=== PATIENT | female | born 1995 | race Caucasian/White ===

== ENCOUNTER 2017-01-06 20:19 | Inpatient (IN) | payer OTHER ==
[~2017-01-06] VITALS: Ht 162.6 cm; Wt 76.0 kg
[~2017-01-06 20:19] MED LIST: CONCCAP2 PO; FERRTAB2 PO
[2017-01-06] MEDS ORDERED: LIDOCAINE HCL 1% 50 ML VIAL ONE (20:46)
[2017-01-06] MEDS ORDERED: OXYTOCIN 30 UNITS 500ML PREMIX IV ONE (21:00)
[2017-01-06] MEDS ORDERED: NS 500 ML BOLUS IV PRN (21:00)
[2017-01-06] MEDS: LACTATED RINGER'S 1000 ML IV SCH (21:00)
[2017-01-06] MEDS ORDERED: MINERAL OIL 10 ML VIAL TOPICAL PRN (21:00)
[2017-01-06] MEDS ORDERED: LIDOCAINE HCL 1% 50 ML VIAL I-DERMAL PRN (21:00)
[2017-01-06] MEDS ORDERED: CITRIC ACID-SODIUM CITRATE LIQ 30 ML UDC PO SCH (21:00)
[2017-01-06] MEDS ORDERED: NS 1000 ML IV PRN (21:00)
[2017-01-06] MEDS ORDERED: LIDOCAINE HCL 1% 50 ML VIAL INFIL PRN (21:00)
[2017-01-06] MEDS ORDERED: ZOLPIDEM TARTRATE 10 MG TAB PO PRN (21:00)
[2017-01-06] MEDS ORDERED: LACTATED RINGER'S 1000 ML BOLUS IV PRN (21:00)
[2017-01-06] MEDS ORDERED: ONDANSETRON HCL 4 MG/2 ML VIAL IV PUSH PRN (21:00)
[2017-01-06 23:09] LABS: AUTOMATED NEUTROPHIL # 9.3 TH/MM3 (1.8-7.7); BASOPHIL % 0.3 % (0.0-2.0); EOSINOPHIL # 0.1 TH/MM3 (0-0.4); EOSINOPHIL % 0.5 % (0.0-4.0); HEMATOCRIT 32.6 % (35.0-46.0); LYMPH % 18.5 % (9.0-44.0); LYMPHOCYTE # 2.4 TH/MM3 (1.0-4.8); MEAN CELL VOLUME 91.1 FL (80.0-100.0); MEAN CORPUSCULAR HEMOGLOBIN 30.6 PG (27.0-34.0); MEAN CORPUSCULAR HGB CONC 33.6 % (32.0-36.0); MONO % 8.6 % (0.0-8.0); NEUT % 72.1 % (16.0-70.0); PLATELET COUNT 292 TH/MM3 (150-450); RED BLOOD COUNT 3.58 MIL/MM3 (4.00-5.30); RED CELL DISTRIBUTION WIDTH 14.5 % (11.6-17.2); WHITE BLOOD COUNT 12.9 TH/MM3 (4.0-11.0)
[2017-01-06 23:15] LABS: HEMO FLAGS AUTO DIFF
[2017-01-06] MEDS ORDERED: NS 1000 ML OTHER PRN (23:15)
[2017-01-06] MEDS ORDERED: MISOPROSTOL 25 MCG SUPP VAGINAL ONE (23:15)
[2017-01-06] MEDS: LACTATED RINGER'S 1000 ML INJ 1,000 ML IV SCH (23:15)
[2017-01-06] MEDS ORDERED: MISOPROSTOL 25 MCG SUPP - repeat dose VAGINAL PRN (23:15)
[2017-01-06 23:19] LABS: BLOOD, URINE NEG (NEG); GLUCOSE,URINE NEG (NEG); KETONE, URINE NEG (NEG); NITRITE,URINE NEG (NEG); PH, URINE 6.5 (5.0-8.5); SQUAMOUS EPITHELIAL CELL URINE 1 /hpf (0-5); URINE COLOR YELLOW (YELLW/STRAW)
[2017-01-06 23:22] VITALS: RESP 18
[2017-01-06 23:24] VITALS: BP 124/66; PULSE 72; TEMP 98.1
[2017-01-06 23:24] LABS: COMMENT (UR) CULT NOT INDICATED; CULTURE IF INDICATED CULT NOT INDICATED
[2017-01-07] VITALS (58 sets, daily range): BP systolic 114–137; BP diastolic 55–98; PULSE 79–132; RESP 8–18; TEMP 98–102.1
[2017-01-07 00:48] LABS: BANDS 19 % (0-6); MYELOCYTES 2 % (0-0); NEUTROPHIL # MANUAL DIFF 10.7 TH/MM3 (1.8-7.7); PLATELET ESTIMATE SMEAR NORMAL (NORMAL); POLYS (SEG NEUTROPHILS) 62 % (16-70); SCAN/DIFF FINAL DIFF MANUAL; WBC DIFF SAMPLE 100
[2017-01-07 00:49] LABS: PLATELET MORPHOLOGY ENLARGED (NORMAL); TOXIC GRANULATION 2+ (NORMAL)
[2017-01-07] MEDS ORDERED: MISOPROSTOL 25 MCG SUPP VAGINAL ONE (03:30)
--- NOTE | 2017-01-07 04:16 | HHI.HP ---
HPI Chief Complaint Induction of labor Travel History International Travel<30 Days: No Contact w/Intl Traveler<30Days: No Known Affected Area: No History of Present Illness HPI 21-year-old G2 0010, IUP at 40 and 6 days care complicated by LGSIL Pap, Rh-, anemia Patient presents for scheduled induction of labor. She denies any leaking of fluid or vaginal bleeding. She reports good movement. She denies any frequent or painful contractions. Weeks Gestation: 40 Para: 0 : 2 History Past Medical History Narrative Medical Anemia Obstetric History Obstetric History 010 SAB 1 Past Surgical History Surgical History: No Previous Surgery Family History Family History: Negative Social History Alcohol Use: No Tobacco Use: No Substance Abuse: No Allergies-Medications (Allergen,Severity, Reaction): Coded Allergies: No Known Allergies (Verified Adverse Reaction, Unknown, 01/05/17) Home Meds Active Scripts Multi-Vit/Iron-Folic Uhae-T31-Eir C (Ferralet) 90-1-0.012-120 mg Tab, 1 TAB PO DAILY, #30 BOTTLE 6 Refills Prov:Soledad Nunez 10/07/16 Vit W/ Fe Fum-Iron Po (Concept Dha 53.5-38-1 mg) 1 Cap Cap, 1 TAB PO DAILY for nutrition, #30 BOTTLE 11 Refills Prov:Crow Mcfadden MD 09/14/16 Review of Systems Except as stated in HPI: all other systems reviewed are Neg Physical Exam Vital Signs Date Time Temp Pulse Resp B/P (MAP) Pulse Ox O2 Delivery O2 Flow Rate FiO2 01/07/17 03:45 18 01/07/17 03:15 18 01/07/17 02:45 18 01/07/17 02:15 18 01/07/17 01:45 18 01/07/17 00:42 18 01/07/17 00:15 18 01/06/17 23:24 98.1 72 124/66 (85) 01/06/17 23:22 18 Narrative GENERAL: Well-nourished, well-developed patient. SKIN: Warm and dry. HEAD: Normocephalic and atraumatic. EYES: No scleral icterus. No injection or drainage. ENT: No nasal drainage noted. Mucous membranes pink. Airway patent. NECK: Supple, trachea midline. No JVD. CARDIOVASCULAR: Regular rate and rhythm without murmurs, gallops, or rubs. RESPIRATORY: Breath sounds equal bilaterally. No accessory muscle use. ABDOMEN/GI: Abdomen soft, non-tender, bowel sounds present, no rebound, no guarding Gravid GENITOURINARY: External Genitalia: intact and normal in appearance. Grossly normal rugae, physiologic discharge, no cervical or vaginal masses noted. SVE 1/70/-2 on admission. Repeat examination after one Cytotec now 370/-2 and appears to have ruptured membranes FHT's: heart tones in the 130s with moderate long-term variability, good accelerations, no decelerations EXTREMITIES: No cyanosis or edema. BACK: Nontender without obvious deformity. NEUROLOGICAL: Awake and alert. Motor and sensory grossly within normal limits. Five out of 5 muscle strength in all muscle groups. Normal speech. Psychiatric: Grossly normal memory and affect Caprini VTE Risk Assessment Caprini VTE Risk Assessment: No/Low Risk (score <= 1) Caprini Risk Assessment Model Point Value = 1 Point Value = 2 Point Value = 3 Point Value = 5 Age 41-60 Minor surgery BMI > 25 kg/m2 Swollen legs Varicose veins or History of unexplained or recurrent spontaneous Oral contraceptives or hormone replacement Sepsis (< 1 month) Serious lung disease, including pneumonia (< 1 month) Abnormal pulmonary function Acute myocardial infarction Congestive heart failure (< 1 month) History of inflammatory bowel disease Medical patient at bed rest Age 61-74 Arthroscopic surgery Major open surgery (> 45 min) Laparoscopic surgery (> 45 min) Malignancy Confined to bed (> 72 hours) Immobilizing plaster cast Central venous access Age >= 75 History of VTE Family history of VTE Factor V Leiden Prothrombin [id number] Lupus anticoagulant Anticardiolipin antibodies Elevated serum homocysteine Heparin-induced thrombocytopenia Other congenital or acquired thrombophilia Stroke (< 1 month) Elective arthroplasty Hip, pelvis, or leg fracture Acute spinal cord injury (< 1 month) Prophylaxis Regimen Total Risk Factor Score Risk Level Prophylaxis Regimen 0-1 Low Early ambulation 2 Moderate Order ONE of the following: *Sequential Compression Device (SCD) *Heparin 5000 units SQ BID 3-4 Higher Order ONE of the following medications: *Heparin 5000 units SQ TID *Enoxaparin/Lovenox 40 mg SQ daily (WT < 150 kg, CrCl > 30 mL/min) *Enoxaparin/Lovenox 30 mg SQ daily (WT < 150 kg, CrCl > 10-29 mL/min) *Enoxaparin/Lovenox 30 mg SQ BID (WT < 150 kg, CrCl > 30 mL/min) AND/OR *Sequential Compression Device (SCD) 5 or more Highest Order ONE of the following medications: *Heparin 5000 units SQ TID (Preferred with Epidurals) *Enoxaparin/Lovenox 40 mg SQ daily (WT < 150 kg, CrCl > 30 mL/min) *Enoxaparin/Lovenox 30 mg SQ daily (WT < 150 kg, CrCl > 10-29 mL/min) *Enoxaparin/Lovenox 30 mg SQ BID (WT < 150 kg, CrCl > 30 mL/min) AND *Sequential Compression Device (SCD) Data Data Orders Orders Lidocaine 1% Inj (50 Ml) (Xylocaine 1% I (01/06/17 20:46) Zolpidem (Ambien) (01/06/17 21:00) Lactated Ringer's 1000 Ml Inj (Lr 1000 M (01/06/17 21:00) Lactated Ringer's 1000 Ml Inj (Lr 1000 M (01/06/17 21:00) Sodium Chlorid 0.9% 500 Ml Inj (Ns 500 M (01/06/17 21:00) Sodium Chlor 0.9% 1000 Ml Inj (Ns 1000 M (01/06/17 21:00) Lidocaine 1% Inj (50 Ml) (Xylocaine 1% I (01/06/17 21:00) Citric Acid-Sodium Citrate Liq (Bicitra (01/06/17 21:00) Ondansetron Inj (Zofran Inj) (01/06/17 21:00) Fentanyl Inj (Fentanyl Inj) (01/06/17 21:00) Fentanyl Inj (Fentanyl Inj) (01/06/17 21:00) Oxytocin 30 Units-500ml Premix (Pitocin (01/06/17 21:00) Lidocaine 1% Inj (50 Ml) (Xylocaine 1% I (01/06/17 21:00) Light Mineral Oil (Muri-Lube Oil) (01/06/17 21:00) Admit To Inpatient (01/06/17 ) Vital Signs (Adult) .Per protocol (01/06/17 22:10) Heart (01/06/17 22:10) Amnioinfusion (01/06/17 22:10) Urinary Catheter Management .ONCE (01/06/17 22:10) Diet Liquid (01/07/17 Breakfast) Complete Blood Count With Diff (01/06/17 22:10) Hold Clot (01/06/17 22:10) Abo/Rh Blood Type (01/06/17 22:10) Urinalysis - C+S If Indicated (01/06/17 22:10) Drug Screen, Random Urine (01/06/17 22:10) Resp Oxygen Non Rebreathe Mask (01/06/17 ) ^ Epidural / Intrathecal Infus (01/06/17 22:10) Specimen To Be Collected PRN (01/06/17 22:10) Specimen To Be Collected PRN (01/06/17 22:10) Admit To Inpatient (01/06/17 ) ^ Labor Induction (01/06/17 23:03) ^ Vaginal Insert (01/06/17 23:03) ^ Vaginal Lavage (01/06/17 23:03) Heart (01/06/17 23:03) Misoprostol Supp (Cytotec Supp) (01/06/17 23:15) Misoprostol Supp (Cytotec Supp) (01/06/17 23:15) Lactated Ringer's 1000 Ml Inj (Lr 1000 M (01/06/17 23:15) Sodium Chlor 0.9% 1000 Ml Inj (Ns 1000 M (01/06/17 23:15) Misoprostol Supp (Cytotec Supp) (01/07/17 03:30) Labs Laboratory Tests Test 01/06/17 20:30 White Blood Count 12.9 Red Blood Count 3.58 Hemoglobin 10.9 Hematocrit 32.6 Mean Corpuscular Volume 91.1 Mean Corpuscular Hemoglobin 30.6 Mean Corpuscular Hemoglobin Concent 33.6 Red Cell Distribution Width 14.5 Platelet Count 292 Mean Platelet Volume 9.6 Neutrophils (%) (Auto) 72.1 Lymphocytes (%) (Auto) 18.5 Monocytes (%) (Auto) 8.6 Eosinophils (%) (Auto) 0.5 Basophils (%) (Auto) 0.3 Neutrophils # (Auto) 9.3 Lymphocytes # (Auto) 2.4 Monocytes # (Auto) 1.1 Eosinophils # (Auto) 0.1 Basophils # (Auto) 0.0 CBC Comment AUTO DIFF Differential Total Cells Counted 100 Neutrophils % (Manual) 62 Band Neutrophils % 19 Lymphocytes % 13 Monocytes % 4 Neutrophils # (Manual) 10.7 Myelocytes 2 Differential Comment FINAL DIFF MANUAL Toxic Granulation 2+ Platelet Estimate NORMAL Platelet Morphology Comment ENLARGED Urine Color YELLOW Urine Turbidity CLEAR Urine pH 6.5 Urine Specific [place] 1.017 Urine Protein NEG Urine Glucose (UA) NEG Urine Ketones NEG Urine Occult Blood NEG Urine Nitrite NEG Urine Bilirubin NEG Urine Urobilinogen LESS THAN 2.0 Urine Leukocyte Esterase NEG Urine RBC 1 Urine WBC 1 Urine Squamous Epithelial Cells 1 Microscopic Urinalysis Comment CULT NOT INDICATED Urine Opiates Screen NEG Urine Barbiturates Screen NEG Urine Amphetamines Screen NEG Urine Benzodiazepines Screen NEG Urine Cocaine Screen NEG Urine Cannabinoids Screen NEG Assessment/Plan Assessment and Plan Assessment/plan: 1. IUP at 40.6 2. Postdates induction of labor: Discussed with patient risks benefits and alternatives to induction of labor. Discussed risks of , risks and indications of delivery. The patient is completed her first dose of Cytotec and appears to spontaneously ruptured her membranes, so we'll start oxytocin 3. Reassuring testing with reassuring FHR, continue monitoring 4. Anemia 5. GBS negative 6. LGSIL Pap: Patient to follow up for further evaluation 7. Soledad Ugarte MD Jan 07, 2017 04:16
[2017-01-07] MEDS: LACTATED RINGER'S 1000 ML IV SCH ×2 (05:00→18:47)
[2017-01-07] MEDS ORDERED: OXYTOCIN 30 UNITS/NS 500ML PREMIX IV SCH (06:00)
[2017-01-07] MEDS ORDERED: fentaNYL 2MCG-BUPIV 0.125% INJ 100 ML ONE ×3 (08:01→20:46)
[2017-01-07] MEDS: LACTATED RINGER'S 1000 ML INJ 1,000 ML IV SCH (08:11)
[2017-01-07] MEDS ORDERED: ePHEDrine/NS 25 MG/5 ML SYR ONE (08:11)
[2017-01-07] MEDS ORDERED: DIPHTH/TETANUS/ACEL PERTUSSIS (BOOSTER) 0.5 ML VIAL/PFS IM ONE (16:00)
[2017-01-07] MEDS ORDERED: MEASLES, MUMPS, RUBELLA VACCINE 0.5 ML VIAL SQ ONE (16:00)
[2017-01-07 22:14] LABS: BLOOD GAS BASE EXCESS -5.2 mmol/L (-2-2); BLOOD GAS O2 HGB SATURATION 46 % (90-100); CORD BLOOD GAS HCO3 20 mmol/L (21-29); CORD BLOOD GAS PCO2 40 mmHG (34-78); CORD BLOOD GAS PH 7.31 (7.14-7.42); CORD BLOOD GAS PO2 24 mmHG (3.0-40.0); DRAW SITE CORD BLOOD; STAT YES
--- NOTE | 2017-01-07 22:27 | PD.OB.DELI ---
Weeks gestation: 40 Gest age assessed date: Jan 06, 2017 Gest age assessed time: 20:19 Pt started active labor?: Yes Active labor start date: Jan 06, 2017 Active labor start time: 20:18 Medical induction of labor?: No Artificial rupture of membrane: Yes Artificial ROM date: Jan 07, 2017 Artifical ROM time: 03:35 Anesthesia: Epidural Episiotomy: None Vaginal Delivery: Normal Presentation: Occiput anterior Nuchal Cord: None Delayed cord clamping (45 sec): No : Male Delivery date: Jan 07, 2017 Delivery time: 22:00 One Minute : 9 Five Minute : 9 Weight: 3620 Placenta: Spontaneous delivery Laceration: Vaginal laceration, 1 deg Repair: Chromic interrupted Estimated blood loss: 200 Additional Information moderate meconium fluid , baby felt "hot" at delivery Randall García II, MD Jan 07, 2017 22:27
[2017-01-07] MEDS ORDERED: ONDANSETRON ODT 4 MG TAB PO PRN (22:30)
[2017-01-07] MEDS ORDERED: ALUMINUM/MAGNESIUM/SIMETH 30 ML CUP PO PRN (22:30)
[2017-01-07] MEDS ORDERED: ACETAMINOPHEN 325 MG TAB PO PRN (22:30)
[2017-01-07] MEDS ORDERED: DOCUSATE SODIUM 50 MG/SENNA 8.6 MG TAB PO PRN (22:30)
[2017-01-07] MEDS ORDERED: BENZOCAINE 20% TOPICAL SPRAY 60 ML CAN TOPICAL PRN (22:30)
[2017-01-07] MEDS ORDERED: oxyCODONE/ACETAMINOPHEN 5 MG/325 MG TAB PO PRN (22:30)
[2017-01-07] MEDS ORDERED: OXYTOCIN 30 UNITS-500ML PREMIX 500 ML IV SCH (22:30)
[2017-01-07] MEDS ORDERED: ZOLPIDEM TARTRATE 5 MG TAB PO PRN (22:30)
[2017-01-07] MEDS ORDERED: WITCH HAZEL 50%/GLYCERIN 12.5% 40 PAD JAR TOPICAL PRN (22:30)
[2017-01-07] MEDS: AMPICILLIN INJ 2,000 MG in SODIUM CHLORIDE 0.9% INJ 100 ML IV SCH (23:00)
[2017-01-08 02:00] VITALS: BP 104/65; PULSE 91; RESP 16; TEMP 98.3
[2017-01-08] MEDS: IBUPROFEN 800 MG TAB PO PRN ×2 (05:19→17:34)
[2017-01-08] MEDS: AMPICILLIN INJ 2,000 MG in SODIUM CHLORIDE 0.9% INJ 100 ML IV SCH ×4 (05:21→22:59)
--- NOTE | 2017-01-08 07:54 | HHI.OB ---
Subjective Post Day: 1 Remarks day # 1 AFVSS overnight. Decreased lochia. Denies dysuria. No breast tenderness. She is feeding the baby via breast. Appetite good. No nausea or vomiting. Ambulating well. Denies calf pain or shortness of breath. Otherwise, she is doing well this morning and has no other complaints. Objective Vitals/I&O Vital Signs Date Time Temp Pulse Resp B/P (MAP) Pulse Ox O2 Delivery O2 Flow Rate FiO2 01/08/17 02:00 98.3 91 16 104/65 (78) 01/07/17 23:15 18 01/07/17 23:00 102.1 18 01/07/17 23:00 114 122/77 (92) 01/07/17 22:45 18 01/07/17 22:45 101 127/98 (108) 01/07/17 22:38 124 127/55 (79) 01/07/17 22:34 102.1 01/07/17 22:30 18 01/07/17 22:30 121/88 (99) 01/07/17 22:15 123 117/69 (85) 01/07/17 22:14 18 01/07/17 22:03 132 127/61 (83) 01/07/17 22:02 99.7 01/07/17 22:00 131/71 (91) 01/07/17 20:53 99.1 01/07/17 20:30 108 122/67 (85) 01/07/17 20:11 99.6 01/07/17 20:00 116 114/75 (88) 01/07/17 19:30 110 127/80 (96) 01/07/17 19:15 98.5 8 01/07/17 19:10 107 01/07/17 19:05 104 01/07/17 19:00 118 01/07/17 19:00 114 123/76 (92) 01/07/17 18:00 96 01/07/17 18:00 95 118/79 (92) 01/07/17 17:55 100 01/07/17 17:50 99 01/07/17 17:45 96 01/07/17 17:40 97 01/07/17 17:35 97 01/07/17 17:30 102 01/07/17 17:30 98 120/71 (87) 01/07/17 17:25 102 01/07/17 17:20 102 01/07/17 17:15 104 01/07/17 17:10 112 01/07/17 17:05 107 01/07/17 17:00 107 134/84 (101) 01/07/17 17:00 102 01/07/17 16:55 107 01/07/17 16:50 99 01/07/17 16:45 103 01/07/17 16:40 102 01/07/17 16:35 115 01/07/17 16:30 101 137/85 (102) 01/07/17 16:30 109 01/07/17 16:25 104 01/07/17 16:20 101 01/07/17 16:15 98.6 18 01/07/17 16:10 95 01/07/17 16:05 103 01/07/17 15:55 99 Intake & Output 01/08/17 01/08/17 07:00 19:00 Intake Total 460 ml Balance 460 ml Intake IV Total 460 ml Objective Remarks GENERAL: Well-nourished, well-developed patient. CARDIOVASCULAR: Regular rate and rhythm without murmurs, gallops, or rubs. RESPIRATORY: Breath sounds equal bilaterally. No accessory muscle use. ABDOMEN/GI: Abdomen soft, non-tender. Fundus: Firm, non-tender at umbilicus. GENITOURINARY: Light to moderate bleeding. EXTREMITIES: No cyanosis or edema, non-tender, without signs of DVT. Medications and IVs Current Medications Medications (Trade) Dose Ordered Sig/Rehan Route Start Time Stop Time Status Last Admin (NS Flush) 2 ml BID IV FLUSH 01/08/17 09:00 (NS Flush) 2 ml UNSCH PRN IV FLUSH 01/07/17 22:30 (Tylenol) 650 mg Q4H PRN PO 01/07/17 22:30 (Motrin) 800 mg Q8H PRN PO 01/07/17 22:30 01/08/17 05:19 (Percocet 5-325 Mg) 1 tab Q4H PRN PO 01/07/17 22:30 (Americaine 20% Top Spr) 1 spray Q4H PRN TOPICAL 01/07/17 22:30 (Tucks Pads) 1 applic QID PRN TOPICAL 01/07/17 22:30 (Sheri-Colace) 2 tab Q12H PRN PO 01/07/17 22:30 (Ambien) 5 mg HS PRN PO 01/07/17 22:30 (Mag-Al Plus Susp Liq) 15 ml Q8H PRN PO 01/07/17 22:30 (Zofran Odt) 4 mg Q6H PRN PO 01/07/17 22:30 Ampicillin Sodium 2000 mg/Sodium Chloride 100 ml @ 400 mls/hr Q6H IV 01/07/17 23:00 01/08/17 05:21 Assessment/Plan Assessment and Plan 21 y/o female who is day one s/p . -Continue routine care. -Percocet and Motrin PRN pain. -Encouraged OOB. Advised pelvic rest for 6 wks. -Re: ctrl, she would like to discuss with her outpatient OB for possibility of IUD. -D/c likely in 1 day. wdw Josue Yi MD R1 Jan 08, 2017 07:54
[2017-01-08 08:00] VITALS: BP 105/69; PULSE 75; RESP 18; TEMP 97.8
[2017-01-08] MEDS ORDERED: SODIUM CHLORIDE 0.9% FLUSH 10 ML FLUSH IV FLUSH SCH (09:00)
[2017-01-08 20:00] VITALS: BP 120/69; PULSE 83; RESP 18; TEMP 97.9; O2SAT 100
[2017-01-08] MEDS: SODIUM CHLORIDE 0.9% FLUSH 10 ML FLUSH IV FLUSH PRN (22:59)
[2017-01-09] MEDS: AMPICILLIN INJ 2,000 MG in SODIUM CHLORIDE 0.9% INJ 100 ML IV SCH (05:19)
[2017-01-09] MEDS: SODIUM CHLORIDE 0.9% FLUSH 10 ML FLUSH IV FLUSH PRN (05:19)
[2017-01-09 08:00] VITALS: BP 115/78; PULSE 78; RESP 16; TEMP 97.8
--- NOTE | 2017-01-09 10:43 | HHI.OB ---
Subjective Post Day: 2 Remarks Pt seen and examined this morning. day # 2 AFVSS overnight. Decreased lochia. Denies dysuria. No breast tenderness. She is feeding the baby via breast. Appetite good. No nausea or vomiting. Patient has not yet had a bowel movement, but does endorse bowel gas. Ambulating well. Denies calf pain or shortness of breath. Otherwise, she is doing well this morning and has no other concerns. Objective Vitals/I&O Vital Signs Date Time Temp Pulse Resp B/P (MAP) Pulse Ox O2 Delivery O2 Flow Rate FiO2 01/09/17 08:00 97.8 01/09/17 08:00 78 16 115/78 (90) 01/08/17 20:00 83 120/69 (86) 01/08/17 20:00 97.9 18 100 Objective Remarks GENERAL: Well-nourished, well-developed patient. CARDIOVASCULAR: Regular rate and rhythm without murmurs, gallops, or rubs. RESPIRATORY: Breath sounds equal bilaterally. No accessory muscle use. ABDOMEN/GI: Abdomen soft, non-tender. Fundus: Firm, non-tender at umbilicus. GENITOURINARY: Light to moderate bleeding. EXTREMITIES: No cyanosis or edema, non-tender, without signs of DVT. Medications and IVs Current Medications Medications (Trade) Dose Ordered Sig/Rehan Route Start Time Stop Time Status Last Admin (NS Flush) 2 ml BID IV FLUSH 01/08/17 09:00 (NS Flush) 2 ml UNSCH PRN IV FLUSH 01/07/17 22:30 01/09/17 05:19 (Tylenol) 650 mg Q4H PRN PO 01/07/17 22:30 (Motrin) 800 mg Q8H PRN PO 01/07/17 22:30 01/08/17 17:34 (Percocet 5-325 Mg) 1 tab Q4H PRN PO 01/07/17 22:30 (Americaine 20% Top Spr) 1 spray Q4H PRN TOPICAL 01/07/17 22:30 (Tucks Pads) 1 applic QID PRN TOPICAL 01/07/17 22:30 (Sheri-Colace) 2 tab Q12H PRN PO 01/07/17 22:30 (Ambien) 5 mg HS PRN PO 01/07/17 22:30 (Mag-Al Plus Susp Liq) 15 ml Q8H PRN PO 01/07/17 22:30 (Zofran Odt) 4 mg Q6H PRN PO 01/07/17 22:30 Ampicillin Sodium 2000 mg/Sodium Chloride 100 ml @ 400 mls/hr Q6H IV 01/07/17 23:00 01/09/17 05:19 Assessment/Plan Assessment and Plan 21 y/o female who is day # 2 s/p . -Continue routine care. -Motrin PRN pain. -Encouraged OOB. Advised pelvic rest for 6 wks. -Re: ctrl, she would like to discuss her options at her follow-up appointment. -Anticipate discharge today, 01/09. MD Daniele Sequeira Dr., Ryan H MD R2 Jan 09, 2017 10:43
[2017-01-09] MEDS ORDERED: IBUP1TAB7 PO (11:24)
[2017-01-09] MEDS ORDERED: PERI PO (11:24)
--- NOTE | 2017-01-09 11:25 | HHI.DCPOC ---
Discharge Care Plan Diagnosis: (1) (spontaneous vaginal delivery) Report Symptoms to Your Doctor -Temperature above 100.5 degrees -Redness, of incision or excessive or foul smelling drainage -Unusual pain or calf pain -Increased vaginal bleeding -Painful or difficulty urinating -Feelings of extreme sadness or anxiety after 2 weeks Goals to Promote Your Health * To prevent worsening of your condition and complications * To maintain your health at the optimal level Directions to Meet Your Goals Take your medications as prescribed Follow your dietary instruction Follow activity as directed Ensure plenty of rest for recovery Drink fluids for hydration Keep your appointments as scheduled Take your immunizations and boosters as scheduled If your symptoms worsen call your PCP, if no PCP go to Urgent Care Center or Emergency Room Smoking is Dangerous to Your Health. Avoid second hand smoke Call the 24-hour crisis hotline for domestic abuse at Cornell Sanabria MD R2 Jan 09, 2017 11:25
[2017-01-09 13:11] VITALS: BP 112/68; PULSE 65; RESP 16; TEMP 98
== END 2017-01-09 14:43 | disposition home or self-care (01) | DRG 775 ==
LOC: H2EA 20:19 → H1EA 01-08 00:39
PROVIDERS: ADMIT Obstetrics & Gynecology; ATTEND Obstetrics & Gynecology
PROC: 10E0XZZ Delivery of Products of Conception, External Approach (ICD-10-PCS; principal; 2017-01-07)
PROC: 0HQ9XZZ Repair Perineum Skin, External Approach (ICD-10-PCS; 2017-01-07)
PROC: 00HU33Z Insertion of Infusion Device into Spinal Canal, Percutaneous Approach (ICD-10-PCS; 2017-01-07)
PROC: 3E0R3BZ Introduction of Anesthetic Agent into Spinal Canal, Percutaneous Approach (ICD-10-PCS; 2017-01-07)
DX: O48.0 Post-term pregnancy (principal); D64.9 Anemia, unspecified; Z37.0 Single live birth; O99.02 Anemia complicating childbirth; Z3A.40 40 weeks gestation of pregnancy; R87.612 Low grade squamous intraepithelial lesion on cytologic smear of cervix (LGSIL); O70.0 First degree perineal laceration during delivery; O77.0 Labor and delivery complicated by meconium in amniotic fluid
CPT/HCPCS: 59025; 80307; 81001; 82805; 85007; 85027; 85461; 86850; 86900; 86901; 90384; J0290; J2405; J2790; J3010; J7120